=== PATIENT | male | born 1960 | race African-American/Black ===

== ENCOUNTER 2018-11-19 19:56 | Emergency (ER) | payer MEDICAID ==
[~2018-11-19] VITALS: Ht 167.6 cm; Wt 66.0 kg
[~2018-11-19 19:56] MED LIST: ASPIRIN PO; ATEN-42 PO; CYCL10TA7 PO; DEPAK5 PO; DICL75TA5 PO; FINA5TAB11 PO; OXYB5TAB11 PO; QUET200T PO; TERA5CAP4 PO; TRAMADOL; [UNRECOGNIZED DRUG - OTHER]
[2018-11-20 00:56] VITALS: BP 134/71
== END 2018-11-20 00:57 | disposition home or self-care (01) ==
LOC: ER 19:56
DX: J20.9 Acute bronchitis, unspecified (principal); F17.200 Nicotine dependence, unspecified, uncomplicated; I10 Essential (primary) hypertension; Z79.82 Long term (current) use of aspirin; Z79.899 Other long term (current) drug therapy
CPT/HCPCS: 71045; 99283

== ENCOUNTER 2018-12-15 22:32 | Emergency (ER) | payer MEDICAID ==
[~2018-12-15] VITALS: Ht 167.6 cm; Wt 66.0 kg
[2018-12-15] MEDS ORDERED: IPRATROPIUM BROMIDE (0.02%) 0.5MG/2.5ML NEB HHN STA (23:01)
[2018-12-15] MEDS ORDERED: ALBUTEROL (0.083%) 2.5MG/3ML NEB HHN STA (23:01)
[2018-12-15] MEDS ORDERED: METHYLPREDNISOLONE SOD SUCC 125 MG/2 ML VIAL IV STA (23:01)
[2018-12-15 23:37] LABS: BASOPHILS % 1.7 % (0.0-2.0); CHLORIDE 109 mEq/L (98-107); EOSINOPHILS % 1.2 % (0.0-5.0); HEMATOCRIT. 38.9 % (42.0-52.0); HEMOGLOBIN. 13.8 g/dL (14.0-18.0); LYMPHOCYTES % 37.7 % (20.0-50.0); MEAN CORPUSCULAR HEMOGLOBIN 35.2 pg (28.0-32.0); MEAN CORPUSCULAR VOLUME 99.1 fL (80.0-94.0); MEAN PLATELET VOLUME 8.8 fl (7.4-10.4); NEUTROPHILS % 50.4 % (40.0-76.0); PLATELET 113 x1000/uL (130-400); RED BLOOD CELL COUNT 3.93 mill/uL (4.7-6.1); RED CELL DISTRIBUTION WIDTH 14.2 % (11.6-14.6)
[2018-12-16 05:34] VITALS: BP 125/65
== END 2018-12-16 05:38 | disposition home or self-care (01) ==
LOC: ER 22:32
DX: S09.8XXA Other specified injuries of head, initial encounter (principal); S16.1XXA Strain of muscle, fascia and tendon at neck level, initial encounter; S39.012A Strain of muscle, fascia and tendon of lower back, initial encounter; J40 Bronchitis, not specified as acute or chronic; I10 Essential (primary) hypertension; Z79.82 Long term (current) use of aspirin; V43.52XA Car driver injured in collision with other type car in traffic accident, initial encounter; Y93.89 Activity, other specified; Y92.488 Other paved roadways as the place of occurrence of the external cause
CPT/HCPCS: 36415; 70450; 71045; 72070; 72100; 72125; 80053; 83880; 84484; 85025; 93005; 94644; 96374; 99285; J2930; J7611; Z7610

== ENCOUNTER 2019-02-09 16:33 | Inpatient (IN) | payer MEDICAID ==
[~2019-02-09] VITALS: Ht 167.6 cm; Wt 64.4 kg
[2019-02-09] MEDS ORDERED: ASPIRIN 81MG TABLET PO ONE (17:15)
[2019-02-09] MEDS ORDERED: PREDNISONE 20MG TABLET PO ONE (17:15)
[2019-02-09] MEDS ORDERED: ALBUTEROL (0.083%) 2.5MG/3ML NEB HHN ONE (17:15)
[2019-02-09 17:24] LABS: BASOPHILS % 1.2 % (0.0-2.0); EOSINOPHILS % 2.7 % (0.0-5.0); HEMATOCRIT. 43.8 % (42.0-52.0); HEMOGLOBIN. 15.4 g/dL (14.0-18.0); LYMPHOCYTES % 36.9 % (20.0-50.0); MEAN CORPUSCULAR HEMOGLOBIN 35.3 pg (28.0-32.0); MEAN CORPUSCULAR VOLUME 100.1 fL (80.0-94.0); MONOCYTES % 5.6 % (2.0-8.0); NEUTROPHILS % 53.6 % (40.0-76.0); PLATELET 148 x1000/uL (130-400); RED BLOOD CELL COUNT 4.38 mill/uL (4.7-6.1); RED CELL DISTRIBUTION WIDTH 15.1 % (11.6-14.6)
[2019-02-09 17:29] LABS: CHLORIDE 98 mEq/L (98-107)
[2019-02-09 17:33] LABS: ETHANOL BLOOD 247 mg/dL
[2019-02-09 17:44] LABS: CLARITY URINE CLEAR (CLEAR); COLOR URINE YELLOW (YELLOW); KETONES URINE NEGATIVE (NEGATIVE); LEUKOCYTE ESTERASE URINE 1+ (NEGATIVE); NITRITE URINE NEGATIVE (NEGATIVE); OCCULT BLOOD URINE TRACE (NEGATIVE); PH URINE 6.5 (4.5-8.0); PROTEIN URINE NEGATIVE (NEGATIVE); SPECIFIC GRAVITY URINE 1.005 (1.005-1.030)
[2019-02-09 17:53] LABS: *AMPHETAMINES SCREEN URINE NEGATIVE (NEGATIVE); *BARBITURATES SCREEN URINE NEGATIVE (NEGATIVE); *BENZODIAZEPINES SCREEN URINE PRESUMTIVE POSITIVE (NEGATIVE); *COCAINE SCREEN URINE NEGATIVE (NEGATIVE)
[2019-02-09 17:54] LABS: CANNABINOID URINE SCREEN NEGATIVE (NEGATIVE); METHADONE URINE SCREEN NEGATIVE (NEGATIVE); OPIATES URINE SCREEN NEGATIVE (NEGATIVE); PHENCYCLIDINE URINE SCREEN PRESUMTIVE POSITIVE (NEGATIVE)
[2019-02-09] MEDS ORDERED: SODIUM CHLORIDE 0.9% 1,000 ML IV ONE (18:09)
[2019-02-09] MEDS ORDERED: CEPHALEXIN 250MG CAPSULE PO ONE (19:00)
[2019-02-10 02:18] VITALS: BP 139/85
[2019-02-10 04:00] VITALS: BP 136/82
[2019-02-10] MEDS ORDERED: NITROGLYCERIN OINT 1GM/INCH UDPKT TD SCH (06:00)
[2019-02-10 08:00] VITALS: BP 148/90
[2019-02-10] MEDS: BUDESONIDE 0.5MG/2ML NEB HHN SCH (09:35)
[2019-02-10] MEDS ORDERED: LORAZEPAM 2MG/ML CPJ IV PRN (09:45)
[2019-02-10 10:27] LABS: BASOPHILS % 0.4 % (0.0-2.0); EOSINOPHILS % 0.6 % (0.0-5.0); HEMATOCRIT. 39.4 % (42.0-52.0); HEMOGLOBIN. 13.6 g/dL (14.0-18.0); LYMPHOCYTES % 27.8 % (20.0-50.0); MEAN CORPUSCULAR HEMOGLOBIN 34.5 pg (28.0-32.0); MEAN CORPUSCULAR VOLUME 99.8 fL (80.0-94.0); MEAN PLATELET VOLUME 9.8 fl (7.4-10.4); MONOCYTES % 6.2 % (2.0-8.0); PLATELET 90 x1000/uL (130-400); RED BLOOD CELL COUNT 3.95 mill/uL (4.7-6.1); RED CELL DISTRIBUTION WIDTH 14.6 % (11.6-14.6)
[2019-02-10] MEDS: MULTIVITAMINS,THER W-MINERALS TABLET PO SCH (10:49)
[2019-02-10] MEDS: FAMOTIDINE 20MG TABLET PO SCH ×2 (10:49→20:42)
[2019-02-10] MEDS: FOLIC ACID 1MG TABLET PO SCH (10:50)
[2019-02-10 11:05] LABS: CHLORIDE 99 mEq/L (98-107)
[2019-02-10] MEDS: ASPIRIN 81MG TABLET PO SCH (11:37)
[2019-02-10] MEDS: THIAMINE HCL 100MG TABLET PO SCH (11:37)
[2019-02-10] MEDS ORDERED: PNEUMOCOCCAL 23-VAL P-SAC VAC 0.5 ML IM ONE (12:00)
[2019-02-10 12:37] LABS: HEPATITIS B SURFACE ANTIGEN NEGATIVE
[2019-02-10] MEDS ORDERED: GUAIFENESIN-DM 200MG-20MG/10ML UDC PO PRN (12:45)
[2019-02-10 13:06] LABS: HEPATITIS A AB IGM NEGATIVE (NEGATIVE)
[2019-02-10] MEDS ORDERED: MECLIZINE 25MG TABLET PO PRN (13:30)
[2019-02-10 16:00] VITALS: BP 140/90
[2019-02-10] MEDS: CHLORDIAZEPOXIDE 25MG CAPSULE PO SCH ×2 (18:37→20:43)
[2019-02-10] MEDS: PREDNISONE 20MG TABLET PO SCH (18:37)
[2019-02-10] MEDS: NICOTINE 14MG PATCH TD SCH (18:38)
[2019-02-10 20:00] VITALS: BP 126/87
[2019-02-10] MEDS: TRAZODONE HCL 50MG TABLET PO SCH (20:42)
[2019-02-10] MEDS: MORPHINE SULFATE 2 MG/ML CPJ (NOT FOR IM USE) IV PRN (20:42)
[2019-02-10] MEDS: QUETIAPINE FUMARATE 50MG TABLET PO SCH (20:42)
[2019-02-10] MEDS: TERAZOSIN HCL 5MG CAPSULE PO SCH (21:15)
[2019-02-11] VITALS: BP 106/68
[2019-02-11 04:00] VITALS: BP 110/76
[2019-02-11] MEDS: CHLORDIAZEPOXIDE 25MG CAPSULE PO SCH ×2 (05:31→13:20)
[2019-02-11 07:41] LABS: BASOPHILS % 0.3 % (0.0-2.0); EOSINOPHILS % 0.1 % (0.0-5.0); HEMATOCRIT. 43.1 % (42.0-52.0); HEMOGLOBIN. 14.9 g/dL (14.0-18.0); LYMPHOCYTES % 19.6 % (20.0-50.0); MEAN CORPUSCULAR HEMOGLOBIN 34.9 pg (28.0-32.0); MEAN CORPUSCULAR VOLUME 100.9 fL (80.0-94.0); MEAN PLATELET VOLUME 9.6 fl (7.4-10.4); MONOCYTES % 3.9 % (2.0-8.0); NEUTROPHILS % 76.1 % (40.0-76.0); PLATELET 95 x1000/uL (130-400); RED BLOOD CELL COUNT 4.27 mill/uL (4.7-6.1)
[2019-02-11 07:50] LABS: CHLORIDE 104 mEq/L (98-107)
[2019-02-11 08:00] VITALS: BP 115/72
[2019-02-11] MEDS: PREDNISONE 20MG TABLET PO SCH (08:46)
[2019-02-11] MEDS: MULTIVITAMINS,THER W-MINERALS TABLET PO SCH (08:46)
[2019-02-11] MEDS: NICOTINE 14MG PATCH TD SCH (08:46)
[2019-02-11] MEDS: THIAMINE HCL 100MG TABLET PO SCH (08:46)
[2019-02-11] MEDS: ASPIRIN 81MG TABLET PO SCH (08:46)
[2019-02-11] MEDS: FAMOTIDINE 20MG TABLET PO SCH ×2 (08:46→21:14)
[2019-02-11] MEDS: FOLIC ACID 1MG TABLET PO SCH (08:46)
[2019-02-11 11:55] VITALS: BP 115/82
[2019-02-11 15:57] VITALS: BP 120/88
[2019-02-11 20:00] VITALS: BP 117/88
[2019-02-11] MEDS: MORPHINE SULFATE 2 MG/ML CPJ (NOT FOR IM USE) IV PRN (21:13)
[2019-02-11] MEDS: TRAZODONE HCL 50MG TABLET PO SCH (21:13)
[2019-02-11] MEDS: QUETIAPINE FUMARATE 50MG TABLET PO SCH (21:13)
[2019-02-11] MEDS: TERAZOSIN HCL 5MG CAPSULE PO SCH (21:14)
[2019-02-12] VITALS: BP 118/85
[2019-02-12 04:00] VITALS: BP 125/83
[2019-02-12 08:00] VITALS: BP 127/87
[2019-02-12] MEDS: FOLIC ACID 1MG TABLET PO SCH (08:48)
[2019-02-12] MEDS: FAMOTIDINE 20MG TABLET PO SCH ×2 (08:48→21:28)
[2019-02-12] MEDS: THIAMINE HCL 100MG TABLET PO SCH (08:48)
[2019-02-12] MEDS: PREDNISONE 20MG TABLET PO SCH (08:48)
[2019-02-12] MEDS: NICOTINE 14MG PATCH TD SCH (08:48)
[2019-02-12] MEDS: MULTIVITAMINS,THER W-MINERALS TABLET PO SCH (08:49)
[2019-02-12] MEDS: SPIRONOLACTONE 25MG TABLET PO SCH (09:48)
[2019-02-12] MEDS: LOSARTAN POTASSIUM 25 MG TABLET PO SCH (09:48)
[2019-02-12] MEDS: IPRATROPIUM/ALBUTEROL 0.5-3(2.5)MG/3ML NEB HHN PRN ×2 (11:34→20:35)
[2019-02-12 12:00] VITALS: BP 111/75
[2019-02-12 16:00] VITALS: BP 115/70
[2019-02-12 20:00] VITALS: BP 118/80
[2019-02-12] MEDS: BUDESONIDE 0.5MG/2ML NEB HHN SCH (20:34)
[2019-02-12] MEDS: CARVEDILOL 6.25 MG TABLET PO SCH (21:21)
[2019-02-12] MEDS: QUETIAPINE FUMARATE 50MG TABLET PO SCH (21:21)
[2019-02-12] MEDS: TERAZOSIN HCL 5MG CAPSULE PO SCH (21:22)
[2019-02-12] MEDS: TRAZODONE HCL 50MG TABLET PO SCH (21:22)
[2019-02-13] VITALS: BP 97/58
[2019-02-13 04:00] VITALS: BP 115/76
[2019-02-13] MEDS: BUDESONIDE 0.5MG/2ML NEB HHN SCH ×2 (07:38→21:00)
[2019-02-13] MEDS: IPRATROPIUM/ALBUTEROL 0.5-3(2.5)MG/3ML NEB HHN PRN (07:38)
[2019-02-13 08:00] VITALS: BP 110/76
[2019-02-13] MEDS: THIAMINE HCL 100MG TABLET PO SCH (08:52)
[2019-02-13] MEDS: FOLIC ACID 1MG TABLET PO SCH (08:52)
[2019-02-13] MEDS: MULTIVITAMINS,THER W-MINERALS TABLET PO SCH (08:52)
[2019-02-13] MEDS: FAMOTIDINE 20MG TABLET PO SCH ×2 (08:52→21:55)
[2019-02-13] MEDS: NICOTINE 14MG PATCH TD SCH (08:52)
[2019-02-13] MEDS: SPIRONOLACTONE 25MG TABLET PO SCH (08:53)
[2019-02-13] MEDS: LOSARTAN POTASSIUM 25 MG TABLET PO SCH (08:53)
[2019-02-13] MEDS: CARVEDILOL 6.25 MG TABLET PO SCH ×2 (08:53→21:56)
[2019-02-13 12:00] VITALS: BP 111/75
[2019-02-13] MEDS: MORPHINE SULFATE 2 MG/ML CPJ (NOT FOR IM USE) IV PRN ×2 (13:02→22:00)
[2019-02-13 16:00] VITALS: BP 105/77
[2019-02-13 20:00] VITALS: BP 133/82
[2019-02-13] MEDS: TRAZODONE HCL 50MG TABLET PO SCH (21:55)
[2019-02-13] MEDS: QUETIAPINE FUMARATE 50MG TABLET PO SCH (21:55)
[2019-02-13] MEDS: TERAZOSIN HCL 5MG CAPSULE PO SCH (21:56)
[2019-02-14 00:07] VITALS: BP 109/73
[2019-02-14 04:00] VITALS: BP 110/54
[2019-02-14 08:00] VITALS: BP 111/76
[2019-02-14] MEDS: CARVEDILOL 6.25 MG TABLET PO SCH ×2 (09:26→21:00)
[2019-02-14] MEDS: FAMOTIDINE 20MG TABLET PO SCH ×2 (09:26→22:20)
[2019-02-14] MEDS: THIAMINE HCL 100MG TABLET PO SCH (09:26)
[2019-02-14] MEDS: MULTIVITAMINS,THER W-MINERALS TABLET PO SCH (09:26)
[2019-02-14] MEDS: SPIRONOLACTONE 25MG TABLET PO SCH (09:26)
[2019-02-14] MEDS: FOLIC ACID 1MG TABLET PO SCH (09:26)
[2019-02-14] MEDS: LOSARTAN POTASSIUM 25 MG TABLET PO SCH (09:26)
[2019-02-14] MEDS: NICOTINE 14MG PATCH TD SCH (09:27)
[2019-02-14 12:00] VITALS: BP 107/76
[2019-02-14 16:00] VITALS: BP 107/76
[2019-02-14 20:00] VITALS: BP 109/76
[2019-02-14] MEDS: TERAZOSIN HCL 5MG CAPSULE PO SCH (21:00)
[2019-02-14] MEDS: QUETIAPINE FUMARATE 50MG TABLET PO SCH (22:20)
[2019-02-14] MEDS: TRAZODONE HCL 50MG TABLET PO SCH (22:21)
[2019-02-15] VITALS: BP 113/75
[2019-02-15 04:00] VITALS: BP 117/80
[2019-02-15 08:00] VITALS: BP 127/60
[2019-02-15] MEDS: FAMOTIDINE 20MG TABLET PO SCH ×2 (08:56→22:23)
[2019-02-15] MEDS: LOSARTAN POTASSIUM 25 MG TABLET PO SCH (08:56)
[2019-02-15] MEDS: NICOTINE 14MG PATCH TD SCH (08:56)
[2019-02-15] MEDS: FOLIC ACID 1MG TABLET PO SCH (08:56)
[2019-02-15] MEDS: MULTIVITAMINS,THER W-MINERALS TABLET PO SCH (08:56)
[2019-02-15] MEDS: THIAMINE HCL 100MG TABLET PO SCH (08:57)
[2019-02-15] MEDS: CARVEDILOL 6.25 MG TABLET PO SCH ×2 (08:57→22:24)
[2019-02-15] MEDS: SPIRONOLACTONE 25MG TABLET PO SCH (09:00)
[2019-02-15 12:00] VITALS: BP 112/81
[2019-02-15] MEDS ORDERED: ACETAMINOPHEN WITH CODEINE 300/30MG TABLET PO PRN (15:00)
[2019-02-15 16:00] VITALS: BP 116/86
[2019-02-15 20:00] VITALS: BP 128/78
[2019-02-15] MEDS: TRAZODONE HCL 50MG TABLET PO SCH (22:22)
[2019-02-15] MEDS: TERAZOSIN HCL 5MG CAPSULE PO SCH (22:23)
[2019-02-15] MEDS: QUETIAPINE FUMARATE 50MG TABLET PO SCH (22:23)
[2019-02-16] VITALS: BP 136/84
[2019-02-16 04:00] VITALS: BP 99/65
[2019-02-16 08:00] VITALS: BP 110/70
[2019-02-16] MEDS: FAMOTIDINE 20MG TABLET PO SCH (09:39)
[2019-02-16] MEDS: MULTIVITAMINS,THER W-MINERALS TABLET PO SCH (09:39)
[2019-02-16] MEDS: SPIRONOLACTONE 25MG TABLET PO SCH (09:39)
[2019-02-16] MEDS: CARVEDILOL 6.25 MG TABLET PO SCH (09:39)
[2019-02-16] MEDS: FOLIC ACID 1MG TABLET PO SCH (09:39)
[2019-02-16] MEDS: THIAMINE HCL 100MG TABLET PO SCH (09:39)
[2019-02-16] MEDS: LOSARTAN POTASSIUM 25 MG TABLET PO SCH (09:39)
[2019-02-16] MEDS: NICOTINE 14MG PATCH TD SCH (09:40)
== END 2019-02-16 13:08 | disposition home or self-care (01) | DRG 140 ==
LOC: ER 16:44 → 7WST 19:04 → EDBEDREQ 19:07 → EDBEDREQTM 19:07 → ENRESERV 02-10 00:15
PROVIDERS: ADMIT Internal Medicine; ATTEND Internal Medicine
DX: J44.1 Chronic obstructive pulmonary disease with (acute) exacerbation (principal); I11.0 Hypertensive heart disease with heart failure; I42.9 Cardiomyopathy, unspecified; I50.22 Chronic systolic (congestive) heart failure; K76.0 Fatty (change of) liver, not elsewhere classified; M94.0 Chondrocostal junction syndrome [Tietze]; F10.10 Alcohol abuse, uncomplicated; J40 Bronchitis, not specified as acute or chronic; F16.90 Hallucinogen use, unspecified, uncomplicated; F17.210 Nicotine dependence, cigarettes, uncomplicated; N40.0 Benign prostatic hyperplasia without lower urinary tract symptoms; F41.9 Anxiety disorder, unspecified; Z82.49 Family history of ischemic heart disease and other diseases of the circulatory system; Z79.899 Other long term (current) drug therapy; Z79.82 Long term (current) use of aspirin; Z71.41 Alcohol abuse counseling and surveillance of alcoholic; Z71.51 Drug abuse counseling and surveillance of drug abuser; Z71.6 Tobacco abuse counseling
CPT/HCPCS: 36415; 71045; 76700; 80048; 80061; 80076; 80305; 80320; 81003; 83880; 84443; 84484; 86705; 86709; 86803; 87340; 90732; 93005; 93306; 93970; 94640; 97116; 97162; 97530; 99285; J2270; J7030; J7050; J7512; J7611; J7620; J7626; G0480